=== PATIENT | male | born 1940 | race Caucasian/White ===

== ENCOUNTER 2019-10-03 06:50 | Day surgery (SDC) | payer MEDICARE ==
[~2019-10-03] VITALS: Ht 185.4 cm; Wt 85.5 kg
[~2019-10-03 06:50] MED LIST: ASPI325 PO; ASPI81CH PO; HYDR1TAB94 PO; Percocet 5-3251 EACH PO; UNKOWN ABX
--- NOTE | 2019-10-03 07:58 | NUR ---
10/03/19 0758 Anita Campos 1ST IV ATTEMPT INFILTRATED IN LEFT HAND
== END 2019-10-03 08:50 | disposition home or self-care (01) ==
LOC: ORSCSDS 06:50
PROVIDERS: Ophthalmology
PROC: 08RK3JZ Replacement of Left Lens with Synthetic Substitute, Percutaneous Approach (ICD-10-PCS; principal; 2019-10-03 08:00)
DX: H25.12 Age-related nuclear cataract, left eye (principal); I48.91 Unspecified atrial fibrillation; Z79.82 Long term (current) use of aspirin
CPT/HCPCS: J2250; J3010; J7040; V2632

== ENCOUNTER 2020-01-17 11:58 | Emergency (ER) | payer MEDICARE ==
[~2020-01-17] VITALS: Ht 185.4 cm; Wt 85.3 kg
[2020-01-17] MEDS ORDERED: XARELTO20 M1 PO (12:26)
[2020-01-17] MEDS ORDERED: METOPROLOL SUCC25 MG PO (12:26)
[2020-01-17] MEDS ORDERED: Vitamin B-121000 MCG PO (12:26)
[2020-01-17] MEDS ORDERED: Vitamin D2000 UNIT PO (12:27)
[2020-01-17 13:35] LABS: Calcium, Ionized (POC) 1.13 mmol/L (1.10-1.46); Chloride (POC) 100 mmol/L (98-108); Creatinine (POC) 0.9 mg/dL (0.8-1.3); Glucose (ISTAT POC) 86 mg/dL (70-99); Hemoglobin (POC) 16.3 g/dL (13.5-17.5); Potassium (POC) 4.2 mmol/L (3.5-5.5); Sodium (POC) 137 mmol/L (135-148); Total CO2 (POC) 25 mmol/L (21-32)
== END 2020-01-17 14:56 | disposition home or self-care (01) ==
LOC: ER 11:58
PROVIDERS: Emergency Medicine
DX: M54.16 Radiculopathy, lumbar region (principal); Z79.01 Long term (current) use of anticoagulants; Z79.899 Other long term (current) drug therapy; Z87.891 Personal history of nicotine dependence
CPT/HCPCS: 36415; 72100; 73701; 80047; 85014; 99284-25; Q9967

== ENCOUNTER → 2020-10-21 | Outpatient (CLI) | payer MEDICARE ==
[~2020-10-21] MED LIST changes: +METOPROLOL SUCC25 MG PO; +Vitamin B-121000 MCG PO; +Vitamin D2000 UNIT PO; +XARELTO20 M1 PO
== END | disposition home or self-care (01) ==
LOC: LAB SHORT 11:58 → LAB 11:58
DX: D04.71 Carcinoma in situ of skin of right lower limb, including hip (principal)
CPT/HCPCS: 88305

== ENCOUNTER 2021-04-15 06:12 | Day surgery (SDC) | payer MEDICARE ==
[~2021-04-15] VITALS: Ht 185.4 cm; Wt 88.6 kg
[~2021-04-15 06:12] MED LIST changes: +MOVE FREE PO; +TURMERIC500 M2 PO
[2021-04-15] MEDS ORDERED: Percocet 5-3251 EACH PO (17:29)
--- NOTE | 2021-04-16 05:12 | NUR ---
SHIFT SUMMARY PT S/P RIGHT KNEE REPLACEMENT YESTERDAY. HE HAS DONE WELL POST OP, PT REPORTS MIMINAL PAIN. HE HAS BEEN ABLE TO TOLERATE AMBULATION AND HAS BEEN UP TO THE BATHROOM AND HAS AMBULATED IN THE HALLWAY WITH WALKER AND SBA. DRESSING INTACT TO SURGICAL SITE, C/D. PT DENIES N/T IN FEET, AND IS ABLE TO WIGGLE TOES. PT MEDICATED FOR PAIN PER EMAR. CRYOTHERAPY, TEDS, AND SCDS IN PLACE T/O SHIFT. POST OP VITALS STABLE. PLAN IS FOR DISCHARGE TODAY. BED IN LOWEST POSITION, CALL LIGHT WITHIN REACH.
[2021-04-16 05:23] LABS: BASOPHILS ABSOLUTE AUTO 0.03 K/mm3 (0.00-0.23); BASOPHILS PERCENT AUTO 0 % (0-2); EOSINOPHILS ABSOLUTE AUTO 0.07 K/mm3 (0.00-0.68); EOSINOPHILS PERCENT AUTO 1 % (0-6); Hematocrit 40.6 % (37.0-53.0); Hemoglobin 13.9 g/dL (13.5-17.5); IMMATURE GRAN ABSOLUTE AUTO 0.04 K/mm3 (0.00-0.10); IMMATURE GRAN PERCENT AUTO 0 % (0-1); LYMPHOCYTES ABSOLUTE AUTO 1.72 K/mm3 (0.84-5.20); LYMPHOCYTES PERCENT AUTO 15 % (21-46); MONOCYTES ABSOLUTE AUTO 0.96 K/mm3 (0.16-1.47); MONOCYTES PERCENT AUTO 8 % (4-13); Mean Corpuscular HGB 32.9 pg (26.0-34.0); Mean Corpuscular HGB Conc 34.2 g/dL (31.5-36.5); Mean Corpuscular Volume 96 fL (80-100); Mean Platelet Volume 11.2 fL (9.1-12.4); NEUTROPHILS ABSOLUTE AUTO 8.95 K/mm3 (1.96-9.15); NEUTROPHILS PERCENT AUTO 76 % (41-73); Platelet Count 178 K/mm3 (150-400); RDW Coefficient Variation 12.5 % (11.7-14.2); Red Blood Cell Count 4.22 M/mm3 (4.30-5.90); White Blood Cell Count 11.77 K/mm3 (4.00-11.30)
[2021-04-16 05:36] LABS: Anion Gap 6 mmol/L (6-16); Blood Urea Nitrogen 18 mg/dL (8-24); CO2, Blood 24 mmol/L (21-32); Calcium, Blood 8.7 mg/dL (8.5-10.1); Chloride, Blood 106 mmol/L (98-108); Glomerular Filtration Rate >60 (60-); Glucose, Blood 114 mg/dL (70-99); Potassium, Blood 4.4 mmol/L (3.5-5.5); Sodium, Blood 136 mmol/L (136-145)
--- NOTE | 2021-04-16 10:45 | NUR ---
DISCHARGE PT HAS CLEARED THERAPY. PAIN WELL CONTROLLED. EATING, DRINKING, & VOIDING WELL. DRSGS, SCRIPT, & POLAR PACK SENT w/ PT. ESCORTED OUT VIA W/C. @ SIDE, ANXIOUS BUT COMFORTABLE w/ DC & INSTRUCTIONS.
== END 2021-04-16 10:36 | disposition home or self-care (01) ==
LOC: ORSCMMR 06:12 → ORD 10:15 → SURS 10:17 → ORSCMMR 11:00 → ORD 13:30 → ORSCMMR 04-16 10:36 → SURS 04-16 10:36
PROVIDERS: Orthopaedic Surgery
PROC: 8E0Y0CZ Robotic Assisted Procedure of Lower Extremity, Open Approach (ICD-10-PCS; principal; 2021-04-15 07:30)
PROC: 0SRC0JA Replacement of Right Knee Joint with Synthetic Substitute, Uncemented, Open Approach (ICD-10-PCS; principal; 2021-04-15 07:30)
DX: M17.11 Unilateral primary osteoarthritis, right knee (principal); Z96.652 Presence of left artificial knee joint; I10 Essential (primary) hypertension; I48.91 Unspecified atrial fibrillation; Z79.01 Long term (current) use of anticoagulants; Z87.891 Personal history of nicotine dependence; Z85.46 Personal history of malignant neoplasm of prostate; Z79.899 Other long term (current) drug therapy
CPT/HCPCS: 27447; S2900; 36415; 73560-RT; 80048; 85025; 97110; 97116; 97161; 97530; A9270; C1776; J0171; J0690; J0735; J1100; J1885; J2250; J2405; J2704; J2795; J3010; J7120

== ENCOUNTER → 2021-05-22 | Outpatient (CLI) | payer MEDICARE | END | disposition home or self-care (01) | LOC: LAB SHORT 12:47 | DX: C44.719 Basal cell carcinoma of skin of left lower limb, including hip (principal) | CPT/HCPCS: 88305 ==

== ENCOUNTER → 2021-06-03 | Outpatient (CLI) | payer MEDICARE | END | disposition home or self-care (01) | LOC: LAB 07:45 → LAB SHORT 07:45 → PLD 07:45 | DX: C44.712 Basal cell carcinoma of skin of right lower limb, including hip (principal) | CPT/HCPCS: 88305 ==

== ENCOUNTER 2021-08-20 11:12 | Day surgery (SDC) | payer MEDICARE ==
[~2021-08-20] VITALS: Ht 185.4 cm; Wt 84.0 kg
[~2021-08-20 11:12] MED LIST changes: +SULTRIDS PO
--- NOTE | 2021-08-20 11:56 | NUR ---
PT AMBULATES TO ROOM c STEADY GAIT. Patient confirms NPO status and agrees with scheduled surgery. Lungs clear T/O to Auscultation. History, Chart, Medications and Allergies reviewed before start of procedure. Patient reports completing Chlorhexadine shower X2 prior to admission to hospital. Surgical site prepped with 2% Chlorhexidine cloth wipe.
--- NOTE | 2021-08-20 12:38 | NUR ---
assumed care no changes waiting for drs to round on patient
--- NOTE | 2021-08-20 14:02 | NUR ---
08/20/21 1402 Jaky Cabrera PATIENT LAST TOOK HIS METOPROLOL TODAY IN THE MORNING.
--- NOTE | 2021-08-20 16:00 | NUR ---
Patient up to Ambulate WITH STANDBY ASSIST AND WALKER. Gait steady. Discharge instructions reviewed with patient. Patient verbalizes understanding. Copy given to patient to take home. Dressing to procedure site clean, dry, intact with no visible drainage, swelling, erythema or bruising noted. Discharged via wheelchair to private car for ride home W/ AND SON
== END 2021-08-20 23:56 | disposition home or self-care (01) ==
LOC: ORSCMMR 11:12
PROVIDERS: Orthopaedic Surgery
PROC: 0MNN0ZZ Release Right Knee Bursa and Ligament, Open Approach (ICD-10-PCS; principal; 2021-08-20 12:30)
DX: S76.111A Strain of right quadriceps muscle, fascia and tendon, initial encounter (principal); I10 Essential (primary) hypertension; I48.91 Unspecified atrial fibrillation; E66.9 Obesity, unspecified; Z68.34 Body mass index [BMI] 34.0-34.9, adult; Z79.01 Long term (current) use of anticoagulants; Z79.899 Other long term (current) drug therapy; Z87.891 Personal history of nicotine dependence
CPT/HCPCS: A9270; J0690; J1100; J2405; J2704; J3010; J7120

== ENCOUNTER 2021-10-02 09:28 | Day surgery (SDC) | payer MEDICARE ==
[~2021-10-02] VITALS: Ht 185.4 cm; Wt 80.8 kg
== END 2021-10-02 12:53 | disposition home or self-care (01) ==
LOC: ORSCSDS 09:28
PROVIDERS: Internal Medicine Gastroenterology
PROC: 0DBH8ZX Excision of Cecum, Via Natural or Artificial Opening Endoscopic, Diagnostic (ICD-10-PCS; principal; 2021-10-02 11:00)
DX: Z12.11 Encounter for screening for malignant neoplasm of colon (principal); Z86.010 Personal history of colon polyps; D12.0 Benign neoplasm of cecum; I10 Essential (primary) hypertension; K64.8 Other hemorrhoids; K57.50 Diverticulosis of both small and large intestine without perforation or abscess without bleeding; Z85.46 Personal history of malignant neoplasm of prostate; Z87.891 Personal history of nicotine dependence; Z79.01 Long term (current) use of anticoagulants; Z79.899 Other long term (current) drug therapy
CPT/HCPCS: 88305; J2704; J7120

== ENCOUNTER → 2022-05-20 | Outpatient (CLI) | payer MEDICARE | END | disposition home or self-care (01) | LOC: LAB 12:46 → PLD 12:46 → LAB SHORT 12:46 | DX: L57.0 Actinic keratosis (principal); L81.8 Other specified disorders of pigmentation | CPT/HCPCS: 88305 ==

== ENCOUNTER 2022-09-15 06:06 | Day surgery (SDC) | payer MEDICARE ==
[~2022-09-15] VITALS: Ht 185.4 cm; Wt 86.3 kg
[2022-09-15] VITALS (14 sets, daily range): BP systolic 109–132; BP diastolic 60–93
--- NOTE | 2022-09-15 07:14 | NUR ---
Surgical site prepped with 2% Chlorhexidine cloth wipe. History, Chart, Medications and Allergies reviewed before start of procedure. Lungs clear T/O to Auscultation. Patient confirms NPO status and agrees with scheduled surgery. Pre-Op teaching done. Pt verbalizes understanding.
--- NOTE | 2022-09-15 10:26 | NUR ---
PATIENT ARRIVED FROM PACU TODAY AT 1000. POD 0 RIGHT TOTAL HIP PATIENT IS A&OX4. VS ARE WNL AND IS ON RA. PATIENT DENIES PAIN AT THIS TIME. PATIENT REPORTS FULL SENSATION TO ALL EXTREMITIES AND CAN MOVE ALL FINGERS AND TOES. HIS RIGHT HIP HAS AN AQUACEL THAT IS C/D/I. PEDAL PULSES ARE STRONG. HE IS TOLERATING PO INTAKE. HE IS LAYING IN BED WITH CALL LIGHT IN REACH.
[2022-09-15] MEDS ORDERED: Percocet 5-3251 EACH PO (10:46)
--- NOTE | 2022-09-15 15:09 | NUR ---
SHIFT SUMMARY: POD 0 RIGHT TOTAL HIP PATIENT IS A&OX4. VS ARE WNL AND IS ON RA. PATIENT DENIES PAIN AND REFUSES PAIN MEDICATIONS AT THIS TIME. HIS RIGHT HIP HAS AN AQUACEL THAT IS C/D/I. PATIENT DENIES NUMBNESS OR TINGLING IN ALL EXTREMITIES. HE CAN MOVE ALL FINGERS AND TOES WHEN ASKED. PATIENT IS TOLERATING PO INTAKE. HE WORKED WITH PHYSICAL THERAPY ONCE TODAY AND WAS A SBA WITH FWW AND GAIT BELT. PATIENT IS SITTING UP IN THE RECLINER WITH LEGS ELEVATED AND CALL LIGHT IN REACH.
[2022-09-16 04:10] VITALS: BP 98/62
[2022-09-16 04:18] LABS: BASOPHILS ABSOLUTE AUTO 0.02 K/mm3 (0.00-0.23); BASOPHILS PERCENT AUTO 0 % (0-2); EOSINOPHILS ABSOLUTE AUTO 0.02 K/mm3 (0.00-0.68); EOSINOPHILS PERCENT AUTO 0 % (0-6); Hematocrit 39.7 % (37.0-53.0); Hemoglobin 14.1 g/dL (13.5-17.5); IMMATURE GRAN ABSOLUTE AUTO 0.06 K/mm3 (0.00-0.10); IMMATURE GRAN PERCENT AUTO 0 % (0-1); LYMPHOCYTES ABSOLUTE AUTO 1.42 K/mm3 (0.84-5.20); LYMPHOCYTES PERCENT AUTO 10 % (21-46); MONOCYTES ABSOLUTE AUTO 1.13 K/mm3 (0.16-1.47); MONOCYTES PERCENT AUTO 8 % (4-13); Mean Corpuscular HGB 32.9 pg (26.0-34.0); Mean Corpuscular HGB Conc 35.5 g/dL (31.5-36.5); Mean Corpuscular Volume 93 fL (80-100); Mean Platelet Volume 10.1 fL (9.1-12.4); NEUTROPHILS ABSOLUTE AUTO 11.38 K/mm3 (1.96-9.15); NEUTROPHILS PERCENT AUTO 81 % (41-73); Platelet Count 174 K/mm3 (150-400); RDW Coefficient Variation 12.5 % (11.7-14.2); RDW Standard Deviation 42.1 fL (35.1-46.3); Red Blood Cell Count 4.29 M/mm3 (4.30-5.90); White Blood Cell Count 14.03 K/mm3 (4.00-11.30)
[2022-09-16 04:41] LABS: Bun/Creatinine Ratio 20.8 (12.0-20.0); Calcium, Blood 8.5 mg/dL (8.5-10.1); Creatinine, Blood 0.87 mg/dL (0.60-1.20); Potassium, Blood 4.4 mmol/L (3.5-5.5)
--- NOTE | 2022-09-16 05:32 | NUR ---
SHIFT SUMMARY POD 1 R DIMPLE, AQUACEL DRESSING C/D/I, POLAR RAFAL IN PLACE. PT A&OX4, PLEASANT AND COOPERATIVE. INDEPENDANT W/ URINAL, SBA W/ FWW. PT DENIES PAIN THIS SHIFT. PLANS FOR DISCHARGE TODAY ONCE CLEARED W/ THERAPY. NO ACUTE CHANGES THIS SHIFT, CALL LIGHT W/IN REACH. IGNITION ASSESSMENT COMPLETED AND NO CONCERNS. WILL REPORT OFF TO ONCOMING STAFF.
[2022-09-16 07:14] VITALS: BP 113/67
--- NOTE | 2022-09-16 11:33 | NUR ---
DISCHARGE NOTE: PATIENT WAS EDUCATED ON DISCHARGE INSTRUCTIONS. HE VERBALIZED UNDERSTANDING OF INSTRUCTIONS AND HAD NO FURTHER QUESTIONS AT THIS TIME. BOTH IVS WERE TAKEN OUT AND WNL. PAIN IS MANAGED WITH ORAL PAIN MEDICATIONS. HIS RIGHT HIP HAS AN AQUACEL THAT IS C/D/I. DENIES NUMBNESS OR TINGLING IN ALL EXTREMITIES. CAN MOVE ALL FINGERS AND TOES WHEN ASKED. HE IS DRESSED AND HAS ALL PERSONAL ITEMS IN THE ROOM GATHERED. HE IS TOLERATING PO INTAKE AND IS VOIDING. PATIENT WAS WHEELCHAIRED OUT TO HIS SPOUSES CAR TO BE TAKEN HOME. HARD PERSCIPTION WAS GIVEN TO YESTERDAY WHICH SHE THEN FILLED OUT AT THEIR PREFERRED PHARMACY YESTERDAY.
== END 2022-09-16 11:30 | disposition home or self-care (01) ==
LOC: ORSCMMR 06:06 → ORD 07:30 → ORSCMMR 07:30 → SURS 10:02 → ORSCMMR 09-16 11:30
PROVIDERS: Orthopaedic Surgery
PROC: 0SR90JZ Replacement of Right Hip Joint with Synthetic Substitute, Open Approach (ICD-10-PCS; principal; 2022-09-15 07:30)
DX: M16.11 Unilateral primary osteoarthritis, right hip (principal); I48.91 Unspecified atrial fibrillation; Z79.01 Long term (current) use of anticoagulants; Z85.46 Personal history of malignant neoplasm of prostate; Z85.820 Personal history of malignant melanoma of skin; Z79.899 Other long term (current) drug therapy
CPT/HCPCS: 36415; 72170; 80048; 85025; 97110; 97116; 97161; A9270; C1776; J0171; J0690; J0735; J1100; J1885; J2250; J2371; J2405; J2704; J2795; J3010; J7120

== ENCOUNTER → 2023-06-02 | Outpatient (CLI) | payer MEDICARE | LOC: LAB EV 12:39 → LAB SHORT 12:39 | DX: C44.519 Basal cell carcinoma of skin of other part of trunk (principal) | CPT/HCPCS: 88305 ==

== ENCOUNTER 2024-06-27 06:17 | Day surgery (SDC) | payer MEDICARE ==
[2024-06-27] VITALS (9 sets, daily range): BP systolic 91–149; BP diastolic 61–82
[~2024-06-27] VITALS: Ht 185.4 cm; Wt 89.0 kg
[~2024-06-27 06:17] MED LIST changes: +Amiodarone HCl200 MG PO; +ELIQUIS5 M2 PO; +TELM20 PO
[2024-06-27] MEDS ORDERED: Verapamil HCL 2.5 MG/ML 2ML Injection ONE (06:44)
[2024-06-27] MEDS ORDERED: Nitroglycerin 2 MG/20 ML BTL ONE (06:45)
[2024-06-27] MEDS ORDERED: NS 1,000 ML IV ONE ×2 (06:45→07:27)
[2024-06-27] MEDS ORDERED: Heparin Sodium 1000 Units/ML 10ML MDV ONE (06:45)
[2024-06-27] MEDS ORDERED: NS 250 ML IV ONE (06:45)
[2024-06-27] MEDS ORDERED: Aspirin 325 MG Tab ONE (07:18)
[2024-06-27] MEDS ORDERED: Midazolam HCl 1MG / ML 2ML Vial ONE (07:27)
[2024-06-27] MEDS ORDERED: FentaNYL Citrate 50 MCG/ML 2 ML Injection ONE (07:27)
[2024-06-27] MEDS ORDERED: Amlodipine Bes2.5 MG PO (08:42)
[2024-06-28] MEDS ORDERED: ACET325 PO (13:35)
== END 2024-06-27 11:04 | disposition home or self-care (01) ==
LOC: MHTC 06:17
DX: I47.29 Other ventricular tachycardia (principal); I25.10 Atherosclerotic heart disease of native coronary artery without angina pectoris; I48.0 Paroxysmal atrial fibrillation; I10 Essential (primary) hypertension; E78.5 Hyperlipidemia, unspecified; I44.2 Atrioventricular block, complete; I49.3 Ventricular premature depolarization; M19.90 Unspecified osteoarthritis, unspecified site; Z85.46 Personal history of malignant neoplasm of prostate; Z87.891 Personal history of nicotine dependence; Z79.01 Long term (current) use of anticoagulants; Z79.899 Other long term (current) drug therapy
CPT/HCPCS: 76937; 93005; 93010; 93458; 99152; 99153; A9270; C1769; C1887; C1894; J1644; J2250; J3010; J7030; J7050; Q9967

== ENCOUNTER 2024-09-10 00:30 | Emergency (ER) | payer MEDICARE ==
[~2024-09-10] VITALS: Ht 185.4 cm; Wt 81.7 kg
[~2024-09-10 00:30] MED LIST changes: +ACET325 PO; +Amlodipine Bes2.5 MG PO; +THERA-D2000 UNIT PO; +VITAMIN B-1250 MCG PO; -Vitamin B-121000 MCG PO; -Vitamin D2000 UNIT PO
[2024-09-10 00:55] LABS: BASOPHILS ABSOLUTE AUTO 0.08 K/mm3 (0.00-0.23); BASOPHILS PERCENT AUTO 1 % (0-2); EOSINOPHILS ABSOLUTE AUTO 0.20 K/mm3 (0.00-0.68); EOSINOPHILS PERCENT AUTO 2 % (0-6); Hematocrit 45.4 % (37.0-53.0); Hemoglobin 15.0 g/dL (13.5-17.5); IMMATURE GRAN ABSOLUTE AUTO 0.03 K/mm3 (0.00-0.10); IMMATURE GRAN PERCENT AUTO 0 % (0-1); LYMPHOCYTES ABSOLUTE AUTO 1.64 K/mm3 (0.84-5.20); LYMPHOCYTES PERCENT AUTO 17 % (21-46); MONOCYTES ABSOLUTE AUTO 0.93 K/mm3 (0.16-1.47); MONOCYTES PERCENT AUTO 10 % (4-13); Mean Corpuscular HGB Conc 33.0 g/dL (31.5-36.5); Mean Corpuscular Volume 96 fL (80-100); NEUTROPHILS ABSOLUTE AUTO 6.77 K/mm3 (1.96-9.15); NEUTROPHILS PERCENT AUTO 70 % (41-73); NRBC ABSOLUTE 0.00 K/mm3 (0.00-0.02); NRBC Auto 0.0 /100 WBC (0.0-0.2); Platelet Count 245 K/mm3 (150-400); RDW Coefficient Variation 13.8 % (11.7-14.2); RDW Standard Deviation 49.5 fL (35.1-46.3)
[2024-09-10 01:42] VITALS: BP 129/79
[2024-09-10 01:57] LABS: Alanine Aminotransfer (ALT/SGP 16.0 U/L (12-78); Albumin, Blood 3.0 g/dL (3.4-5.0); Albumin/Globulin Ratio 0.9 (0.8-1.8); Anion Gap 7.0 mmol/L (3-11); Aspartate Aminotrans (AST/SGOT 19.0 U/L (12-37); Bilirubin, Total 0.9 mg/dL (0.1-1.0); Blood Urea Nitrogen 9.0 mg/dL (8-24); CO2, Blood 26.0 mmol/L (21-32); Calcium, Blood 8.3 mg/dL (8.5-10.1); Chloride, Blood 105.0 mmol/L (98-108); Creatinine, Blood 0.81 mg/dL (0.60-1.20); Globulin, Blood 3.3 g/dL (2.2-4.0); Glucose, Blood 116.0 mg/dL (70-99); Potassium, Blood 4.3 mmol/L (3.5-5.5); Sodium, Blood 134.0 mmol/L (136-145); Total Protein, Blood 6.3 g/dL (6.4-8.2)
[2024-09-10] MEDS ORDERED: AMOCLA875 PO (02:42)
[2024-09-10] MEDS ORDERED: AZIT250 PO (02:42)
== END 2024-09-10 02:51 | disposition home or self-care (01) ==
LOC: ER 00:30
PROVIDERS: Student in an Organized Health Care Education/Training Program
DX: J18.9 Pneumonia, unspecified organism (principal); I10 Essential (primary) hypertension; Z79.01 Long term (current) use of anticoagulants; Z79.2 Long term (current) use of antibiotics; Z79.899 Other long term (current) drug therapy; Z87.891 Personal history of nicotine dependence; Z96.641 Presence of right artificial hip joint
CPT/HCPCS: 71045; 80053; 83880; 84484; 85025; 93005; 93010; 99285-25; A9270

== ENCOUNTER 2024-09-14 15:54 | Inpatient (IN) | payer OTHER, MEDICARE ==
[~2024-09-14] VITALS: Ht 185.4 cm; Wt 82.7 kg
[~2024-09-14 15:54] MED LIST changes: +AMOCLA875 PO; +AZIT250 PO
[2024-09-14 16:53] VITALS: BP 118/69
[2024-09-14] MEDS ORDERED: Ondansetron HCl 2 MG / ML 2ML Vial IV PRN (16:55)
[2024-09-14] MEDS ORDERED: Colchicine 0.6 MG TAB PO SCH (17:00)
[2024-09-14] MEDS ORDERED: DILT120 PO (17:05)
[2024-09-14 17:47] LABS: BASOPHILS ABSOLUTE AUTO 0.07 K/mm3 (0.00-0.23); BASOPHILS PERCENT AUTO 1 % (0-2); EOSINOPHILS ABSOLUTE AUTO 0.10 K/mm3 (0.00-0.68); EOSINOPHILS PERCENT AUTO 1 % (0-6); Hematocrit 38.8 % (37.0-53.0); Hemoglobin 13.3 g/dL (13.5-17.5); IMMATURE GRAN ABSOLUTE AUTO 0.04 K/mm3 (0.00-0.10); IMMATURE GRAN PERCENT AUTO 1 % (0-1); LYMPHOCYTES ABSOLUTE AUTO 1.21 K/mm3 (0.84-5.20); LYMPHOCYTES PERCENT AUTO 17 % (21-46); MONOCYTES ABSOLUTE AUTO 0.77 K/mm3 (0.16-1.47); MONOCYTES PERCENT AUTO 11 % (4-13); Mean Corpuscular HGB Conc 34.3 g/dL (31.5-36.5); Mean Corpuscular Volume 96 fL (80-100); NEUTROPHILS ABSOLUTE AUTO 4.99 K/mm3 (1.96-9.15); NEUTROPHILS PERCENT AUTO 69 % (41-73); NRBC ABSOLUTE 0.00 K/mm3 (0.00-0.02); NRBC Auto 0.0 /100 WBC (0.0-0.2); Platelet Count 262 K/mm3 (150-400); RDW Coefficient Variation 13.9 % (11.7-14.2); RDW Standard Deviation 48.9 fL (35.1-46.3)
[2024-09-14 18:03] LABS: Prothrombin Time Results 14.4 Sec (9.7-11.5)
--- NOTE | 2024-09-14 18:13 | NUR ---
ADMIT NOTE DIRECT ADMIT TO ROOM AT APPROX 1645, PT WALKED TO ROOM. PT AND SPOUSE ORIENTED TO ROOM AND CALL LIGHT. PT ALERT, ORIENTED X4; CALM AND COOPERATIVE WITH CARE. PT DENIES PAIN, CHEST PAIN/PRESSURE, SOB, NAUSEA, DIZZINESS AND NUMB/TINGLING. TELE VPACED 80-90'S, BP STABLE, ORTHO NEGACTIVE 116/74 88 LYING; 110/70 86 SITTING AND STANDING 102/77 90. SPO2 >90% ON RA, BREATHING EVEN AND UNLABORED, LS CLEAR. ABD SOFT, NONTENDER, +BT T/O. NO EDEMA NOTED. VERITO HOSE PLACED. NO OTHER ACUTE CHANGES NOTED. DR KWON AT BEDSIDE THIS EVENING. DR LOMAS AT BEDSIDE WITH ADMITTING ORDERS. PLANS FOR NPO AT MIDNIGHT.
[2024-09-14 18:24] LABS: C-REACTIVE PROTEIN, EXT RANGE 13.0 mg/dL (0.000-0.300)
[2024-09-14 18:27] LABS: Alanine Aminotransfer (ALT/SGP 35.0 U/L (12-78); Albumin, Blood 3.0 g/dL (3.4-5.0); Albumin/Globulin Ratio 0.8 (0.8-1.8); Anion Gap 10.0 mmol/L (3-11); Aspartate Aminotrans (AST/SGOT 31.0 U/L (12-37); Bilirubin, Total 0.9 mg/dL (0.1-1.0); Blood Urea Nitrogen 16.0 mg/dL (8-24); CO2, Blood 22.0 mmol/L (21-32); Calcium, Blood 8.6 mg/dL (8.5-10.1); Chloride, Blood 103.0 mmol/L (98-108); Creatinine, Blood 1.04 mg/dL (0.60-1.20); Globulin, Blood 3.6 g/dL (2.2-4.0); Glucose, Blood 147.0 mg/dL (70-99); Potassium, Blood 3.9 mmol/L (3.5-5.5); Sodium, Blood 131.0 mmol/L (136-145); Total Protein, Blood 6.6 g/dL (6.4-8.2)
[2024-09-14 19:28] LABS: Influenza A/2009-H1 Not Detected (NOT DETECT); SARS-Cov-2 (COVID-19), BioFire Not Detected (NOT DETECT)
[2024-09-14 20:49] VITALS: BP 106/65
[2024-09-14 23:32] VITALS: BP 119/74
[2024-09-15 03:23] VITALS: BP 118/76
[2024-09-15 04:09] LABS: BASOPHILS ABSOLUTE AUTO 0.06 K/mm3 (0.00-0.23); BASOPHILS PERCENT AUTO 1 % (0-2); EOSINOPHILS ABSOLUTE AUTO 0.19 K/mm3 (0.00-0.68); EOSINOPHILS PERCENT AUTO 3 % (0-6); Hematocrit 34.9 % (37.0-53.0); Hemoglobin 11.7 g/dL (13.5-17.5); IMMATURE GRAN ABSOLUTE AUTO 0.04 K/mm3 (0.00-0.10); IMMATURE GRAN PERCENT AUTO 1 % (0-1); LYMPHOCYTES ABSOLUTE AUTO 1.40 K/mm3 (0.84-5.20); LYMPHOCYTES PERCENT AUTO 22 % (21-46); MONOCYTES ABSOLUTE AUTO 0.86 K/mm3 (0.16-1.47); MONOCYTES PERCENT AUTO 13 % (4-13); Mean Corpuscular HGB Conc 33.5 g/dL (31.5-36.5); Mean Corpuscular Volume 95 fL (80-100); NEUTROPHILS ABSOLUTE AUTO 3.96 K/mm3 (1.96-9.15); NEUTROPHILS PERCENT AUTO 61 % (41-73); NRBC ABSOLUTE 0.00 K/mm3 (0.00-0.02); NRBC Auto 0.0 /100 WBC (0.0-0.2); Platelet Count 245 K/mm3 (150-400); RDW Coefficient Variation 13.8 % (11.7-14.2); RDW Standard Deviation 47.7 fL (35.1-46.3)
[2024-09-15 04:35] LABS: Alanine Aminotransfer (ALT/SGP 29.0 U/L (12-78); Albumin, Blood 2.4 g/dL (3.4-5.0); Albumin/Globulin Ratio 0.7 (0.8-1.8); Anion Gap 9.0 mmol/L (3-11); Aspartate Aminotrans (AST/SGOT 21.0 U/L (12-37); Bilirubin, Total 1.0 mg/dL (0.1-1.0); Blood Urea Nitrogen 14.0 mg/dL (8-24); CO2, Blood 25.0 mmol/L (21-32); Calcium, Blood 8.1 mg/dL (8.5-10.1); Chloride, Blood 104.0 mmol/L (98-108); Creatinine, Blood 0.96 mg/dL (0.60-1.20); Globulin, Blood 3.3 g/dL (2.2-4.0); Glucose, Blood 102.0 mg/dL (70-99); Potassium, Blood 3.8 mmol/L (3.5-5.5); Sodium, Blood 134.0 mmol/L (136-145); Total Protein, Blood 5.7 g/dL (6.4-8.2)
--- NOTE | 2024-09-15 05:54 | NUR ---
SHIFT SUMMARY: PT A&OX4 CALM AND COOPERATIVE. ABLE TO MAKE NEEDS KNOWN AND CALLS APPROPRIATELY. VSS ON RA. HR AFIB 70S. KEPT NPO AFTER MIDNIGHT. SBA TO BATHROOM. ABLE TO TURN SELF IN BED. CT COMPLETED TONIGHT. DAILY WEIGHT COMPLETED. NO OTHER SIGNIFICANT EVENTS DURING SHIFT. PLAN IS FOR POSSIBLE PERICARDIOCENTESIS 09/15. WILL CONTINUE PLAN OF CARE TILL REPORT GIVEN TO DAY NURSE.
[2024-09-15 07:32] VITALS: BP 123/65
[2024-09-15] MEDS ORDERED: NS 0 ML IV ONE ×2 (08:27)
[2024-09-15] MEDS ORDERED: Heparin Sodium 1000 Units/ML 10ML MDV ONE (08:27)
[2024-09-15] MEDS ORDERED: CefTRIAXone Sodium 1,000 MG in NS 100 ML IV SCH (09:53)
[2024-09-15 12:54] VITALS: BP 122/78
[2024-09-15 16:02] VITALS: BP 112/76
--- NOTE | 2024-09-15 18:27 | NUR ---
Shift Summary Pt alert, oriented x4; calm and cooperative with care. Pt up sba in room. Pt denies pain, chest pain/pressure, sob, nausea, dizziness and numb/tingling. Pt has continuos hiccups; had pacemaker interogation; administered reglan this afternoon, with positive results, hiccups have ceased this evening. Abd soft, nontender, +bt. Tele afib/vpaced, bp stable, no edema noted. Ortho negative. Spo2 >90% on ra, breathing even and unlabored. Other vss. Plans for pericardialcentesis tomorrow, NPO at midnight. Discussed diet with Dr Warner, new orders for regular diet entered. Call light within reach.
[2024-09-15 19:24] VITALS: BP 117/66
[2024-09-15] MEDS ORDERED: Fluticasone 0.05% Nasal Spray SCH (21:00)
[2024-09-15 23:18] VITALS: BP 121/78
[2024-09-16] VITALS (15 sets, daily range): BP systolic 103–135; BP diastolic 60–91
--- NOTE | 2024-09-16 06:45 | NUR ---
SHIFT SUMMARY: PT A&OX4 CALM AND COOPERATIVE. ABLE TO MAKE NEEDS KNOWN AND CALLS APPROPRIATELY. VSS ON RA. HR AFIB 70S. KEPT NPO AFTER MIDNIGHT. SBA TO BATHROOM. CHRONIC HICCUPS. MEDICATED PER EMAR. NO OTHER SIGNIFICANT CHANGES TO REPORT. WILL CONTINUE PLAN OF CARE TILL REPORT GIVEN TO DAY NURSE.
[2024-09-16 08:20] LABS: BASOPHILS ABSOLUTE AUTO 0.07 K/mm3 (0.00-0.23); BASOPHILS PERCENT AUTO 1 % (0-2); EOSINOPHILS ABSOLUTE AUTO 0.18 K/mm3 (0.00-0.68); EOSINOPHILS PERCENT AUTO 3 % (0-6); Hematocrit 38.2 % (37.0-53.0); Hemoglobin 13.1 g/dL (13.5-17.5); IMMATURE GRAN ABSOLUTE AUTO 0.04 K/mm3 (0.00-0.10); IMMATURE GRAN PERCENT AUTO 1 % (0-1); LYMPHOCYTES ABSOLUTE AUTO 1.21 K/mm3 (0.84-5.20); LYMPHOCYTES PERCENT AUTO 20 % (21-46); MONOCYTES ABSOLUTE AUTO 0.71 K/mm3 (0.16-1.47); MONOCYTES PERCENT AUTO 12 % (4-13); Mean Corpuscular HGB Conc 34.3 g/dL (31.5-36.5); Mean Corpuscular Volume 95 fL (80-100); NEUTROPHILS ABSOLUTE AUTO 3.88 K/mm3 (1.96-9.15); NEUTROPHILS PERCENT AUTO 64 % (41-73); NRBC ABSOLUTE 0.00 K/mm3 (0.00-0.02); NRBC Auto 0.0 /100 WBC (0.0-0.2); Platelet Count 272 K/mm3 (150-400); RDW Coefficient Variation 14.1 % (11.7-14.2); RDW Standard Deviation 49.1 fL (35.1-46.3)
[2024-09-16] MEDS ORDERED: NS 250 ML IV ONE (08:31)
[2024-09-16 08:32] LABS: Prothrombin Time Results 13.6 Sec (9.7-11.5)
[2024-09-16 08:41] LABS: Alanine Aminotransfer (ALT/SGP 28.0 U/L (12-78); Albumin, Blood 2.6 g/dL (3.4-5.0); Albumin/Globulin Ratio 0.7 (0.8-1.8); Anion Gap 8.0 mmol/L (3-11); Aspartate Aminotrans (AST/SGOT 19.0 U/L (12-37); Bilirubin, Total 0.7 mg/dL (0.1-1.0); Blood Urea Nitrogen 11.0 mg/dL (8-24); CO2, Blood 25.0 mmol/L (21-32); Calcium, Blood 8.4 mg/dL (8.5-10.1); Chloride, Blood 106.0 mmol/L (98-108); Creatinine, Blood 0.8 mg/dL (0.60-1.20); Globulin, Blood 3.5 g/dL (2.2-4.0); Glucose, Blood 96.0 mg/dL (70-99); Potassium, Blood 4.0 mmol/L (3.5-5.5); Sodium, Blood 135.0 mmol/L (136-145); Total Protein, Blood 6.1 g/dL (6.4-8.2)
[2024-09-16] MEDS ORDERED: NS 1,000 ML IV ONE (08:45)
[2024-09-16] MEDS ORDERED: FentaNYL Citrate 50 MCG/ML 2 ML Injection ONE (08:55)
[2024-09-16] MEDS ORDERED: Colchicine 0.6 MG TAB PO SCH (09:00)
[2024-09-16 10:20] LABS: Automated BF RBC Count 0.015 M/mm3 (0-0); Automated BF WBC Count 0.172 K/mm3 (0-999)
[2024-09-16 10:21] LABS: RBC Count, Body Fluid 15000 /mm3 (0-0)
[2024-09-16 10:25] LABS: Color, Body Fluid Amber (None-Yellow)
[2024-09-16 10:41] LABS: Glucose, Body Fluid 88 mg/dL
[2024-09-16 10:48] LABS: Lactate Dehydrogenase, Body Fl 611 U/L
[2024-09-16 10:53] LABS: Eosinophils, Fluid 1.0 % (0.0-10.0); Lymphocytes, Fluid 26.0 % (0.0-18.0); Monocytes/Mononuclear, Fluid 11.0 % (0.0-50.0); Neutrophils, Fluid 62.0 % (0.0-25.0); Total Cell Count, Body Fluid 100
[2024-09-16 14:37] LABS: BASOPHILS ABSOLUTE AUTO 0.07 K/mm3 (0.00-0.23); BASOPHILS PERCENT AUTO 1 % (0-2); EOSINOPHILS ABSOLUTE AUTO 0.14 K/mm3 (0.00-0.68); EOSINOPHILS PERCENT AUTO 2 % (0-6); Hematocrit 38.3 % (37.0-53.0); Hemoglobin 12.9 g/dL (13.5-17.5); IMMATURE GRAN ABSOLUTE AUTO 0.03 K/mm3 (0.00-0.10); IMMATURE GRAN PERCENT AUTO 0 % (0-1); LYMPHOCYTES ABSOLUTE AUTO 1.05 K/mm3 (0.84-5.20); LYMPHOCYTES PERCENT AUTO 14 % (21-46); MONOCYTES ABSOLUTE AUTO 0.91 K/mm3 (0.16-1.47); MONOCYTES PERCENT AUTO 12 % (4-13); Mean Corpuscular HGB Conc 33.7 g/dL (31.5-36.5); Mean Corpuscular Volume 96 fL (80-100); NEUTROPHILS ABSOLUTE AUTO 5.24 K/mm3 (1.96-9.15); NEUTROPHILS PERCENT AUTO 71 % (41-73); NRBC ABSOLUTE 0.00 K/mm3 (0.00-0.02); NRBC Auto 0.0 /100 WBC (0.0-0.2); Platelet Count 275 K/mm3 (150-400); RDW Coefficient Variation 14.1 % (11.7-14.2); RDW Standard Deviation 50.2 fL (35.1-46.3)
--- NOTE | 2024-09-16 17:51 | NUR ---
SHIFT SUMMARY PT ALERT, ORIENTED X4; CALM AND COOPERATIVE WITH CARE. PT RESTING BED, SBA IN ROOM. DENIES PAIN, CHEST PAIN/PRESSURE, SOB, NAUSEA, DIZZINESS AND NUMB/TINGLING. NO HICCUPS NOTED THIS AM, PT STATING HE WAS STILL HAVING THE, MEDICATED WITH REGLAN PER ORDERS. TELE AFIB/VPACED, BP STABLE. SPO2 >90% ON RA, BREATHING EVEN AND UNLABORED. ABD SOFT, NONTENDER, +BT. OTHER VSS. PT HAD PERICARDIAL DRAIN PLACED TO LEFT CHEST, MINIMAL OUTPUT NOTED, SANGENOUS. REPORTING PAIN TO SITE, MEDIDCATED WITH TYLENOL, WITH POSITIVE RESULTS. CALL LIGHT WITH IN REACH.
[2024-09-17 03:19] VITALS: BP 124/75
--- NOTE | 2024-09-17 05:41 | NUR ---
SHIFT SUMMARY: PT A&OX4 CALM AND COOPERATIVE. ABLE TO MAKE NEEDS KNOWN AND CALLS APPROPRIATELY. VSS ON RA. SBA TO BATHROOM. PT FREQUENTLY EDUCATED TO NOT FLUSH URINE. UNMEASURED VOIDS NOTED. LEARNER VERBALIZED UNDERSTANDING. PT REPORTS THEY HAVE BEEN URINATING. CONTINUES TO HAVE CHRONIC HICCUPS. MEDICATED PER EMAR. PT REPORTS RELIEF AFTER MEDICATING. PERICARDIAL DRAIN IN PLACE ON LEFT CHEST WALL. ASPIRATED AND DRAINED. MINIMAL SANGUINEOUS OUTPUT. NO CREPITUS NOTED. WILL CONTINUE PLAN OF CARE TILL REPORT GIVEN TO DAY NURSE.
[2024-09-17 08:15] VITALS: BP 124/75
[2024-09-17 11:02] VITALS: BP 123/85
[2024-09-17] MEDS ORDERED: ASPI325 PO (11:48)
[2024-09-17] MEDS ORDERED: ASPI81CH PO (11:49)
[2024-09-17] MEDS ORDERED: CEFD300 PO (11:51)
[2024-09-17] MEDS ORDERED: CHLO10T PO (11:52)
[2024-09-17] MEDS ORDERED: PANT40 PO (11:52)
--- NOTE | 2024-09-17 15:31 | NUR ---
SHIFT SUMMARY PATIENT AOX4 ABLE TO MAKE NEEDS KNOWN DENIES CP OR SOB. HE HAD A LEFT CHEST DRAIN WITH NO OUTPUT WITH ASPIRATION AND ONLY 10CC OUTPUT OVERNIGHT. CARDIOLOGY REMOVED THE DRAIN AT BEDSIDE PATIENT TOLERATED. PATIENT IS INDEPNDENT WITH MEALS AND TO THE RESTROOM. DISCHARGE INSRUCTIONS WERE EXPLAINED AND UNDRSTOOD, ALL QUESTIONS ANSWERED WITH SPOUSE AT BEDSIDE.
[2024-09-18 12:07] LABS: LACTATE DEHYDROGENASE - 1 33 % (14-27); LACTATE DEHYDROGENASE - 2 41 % (29-42); LACTATE DEHYDROGENASE - 3 17 % (18-30); LACTATE DEHYDROGENASE - 4 5 % (8-15); LACTATE DEHYDROGENASE - 5 4 % (6-23); LACTATE DEHYDROGENASE,TOTAL 290 U/L (105-230)
== END 2024-09-17 14:17 | disposition home or self-care (01) | DRG 314 ==
LOC: PCU 15:54
PROVIDERS: Internal Medicine; Student in an Organized Health Care Education/Training Program; ADMIT Internal Medicine
PROC: 0W9D3ZX Drainage of Pericardial Cavity, Percutaneous Approach, Diagnostic (ICD-10-PCS; principal; 2024-09-16)
DX: I31.39 Other pericardial effusion (noninflammatory) (principal); J12.9 Viral pneumonia, unspecified; I44.2 Atrioventricular block, complete; I48.92 Unspecified atrial flutter; E78.5 Hyperlipidemia, unspecified; I10 Essential (primary) hypertension; Z95.0 Presence of cardiac pacemaker; I48.0 Paroxysmal atrial fibrillation; R06.6 Hiccough; Z79.899 Other long term (current) drug therapy; Z79.01 Long term (current) use of anticoagulants; I95.1 Orthostatic hypotension
CPT/HCPCS: 0202U; 36415; 71045; 71250; 76937; 80053; 82945; 83615; 83625; 83880; 84155; 84157; 84484; 85025; 85610; 85651; 86140; 88108; 88305; 89051; 93308; 96365; 99152; 99153; A9270; C1729; C1894; G0378; G0379; J0696; J1644; J3010; J7030; J7040; J7050